=== PATIENT | male | born 1940 | race Caucasian/White ===

== ENCOUNTER → 2024-03-06 12:35 | Outpatient (REF) | payer BC, SELFPAY | LOC: WOUND 12:35 | PROVIDERS: ATTENDING PHYSICIAN Surgery; FAMILY PHYSICIAN Family Medicine | DX: S31.109A Unspecified open wound of abdominal wall, unspecified quadrant without penetration into peritoneal cavity, initial encounter (principal); K94.09 Other complications of colostomy; X58.XXXA Exposure to other specified factors, initial encounter | CPT/HCPCS: 99204 ==

== ENCOUNTER → 2024-03-20 14:46 | Outpatient (REF) | payer BC, SELFPAY | LOC: WOUND 14:46 | PROVIDERS: ATTENDING PHYSICIAN Surgery; FAMILY PHYSICIAN Family Medicine | DX: S31.109A Unspecified open wound of abdominal wall, unspecified quadrant without penetration into peritoneal cavity, initial encounter (principal); K94.09 Other complications of colostomy; X58.XXXA Exposure to other specified factors, initial encounter | CPT/HCPCS: 99213 ==

== ENCOUNTER → 2024-04-17 15:12 | Outpatient (REF) | payer BC, SELFPAY | LOC: WOUND 15:12 | PROVIDERS: ATTENDING PHYSICIAN Surgery; FAMILY PHYSICIAN Family Medicine | DX: S31.109A Unspecified open wound of abdominal wall, unspecified quadrant without penetration into peritoneal cavity, initial encounter (principal); K94.09 Other complications of colostomy; X58.XXXA Exposure to other specified factors, initial encounter | CPT/HCPCS: 99213 ==

== ENCOUNTER → 2024-05-15 14:58 | Outpatient (REF) | payer BC, SELFPAY | LOC: WOUND 14:58 | PROVIDERS: ATTENDING PHYSICIAN Surgery; FAMILY PHYSICIAN Family Medicine | DX: S31.109A Unspecified open wound of abdominal wall, unspecified quadrant without penetration into peritoneal cavity, initial encounter (principal); K94.09 Other complications of colostomy; X58.XXXA Exposure to other specified factors, initial encounter | CPT/HCPCS: 99213 ==